=== PATIENT | male | born 1990 | race Caucasian/White ===

== ENCOUNTER 2019-04-28 19:39 | Emergency (ER) | payer MEDICAID ==
[~2019-04-28] VITALS: Ht 165.1 cm; Wt 84.1 kg
[2019-04-28 20:03] VITALS: Ht 165.1 cm; Wt 84.1 kg
[2019-04-28 21:30] LABS: BASOPHIL % 0.3 % (0-2); PLATELET COUNT 169 x10^3mcL (130-400); RED CELL DISTRIBUTION WIDTH 12.9 % (11.5-14.5)
[2019-04-28 21:51] LABS: CALCIUM 8.5 mg/dL (8.5-10.1); CARBON DIOXIDE 25.9 mmol/L (21-32); CHLORIDE SERUM 104 mmol/L (98-107); CREATININE SERUM 0.9 mg/dL (0.7-1.3); GFR1 > 60 mL/min; GLUCOSE SERUM 102 mg/dL (74-106); SODIUM SERUM 137 mmol/L (136-145)
[2019-04-28 21:57] LABS: ALBUMIN 4.2 g/dL (3.4-5.0); ALKALINE PHOSPHATASE 75 U/L (46-116); ALT/SGPT 36 U/L (16-63); AST/SGOT 17 U/L (15-37); BILIRUBIN TOTAL 0.6 mg/dL (0.20-1.00); TOTAL PROTEIN, SERUM 7.7 g/dL (6.4-8.2)
[2019-04-28 23:10] LABS: microscopic required? NO
[2019-04-28 23:18] LABS: urine erythrocyte NEGATIVE (NEGATIVE)
[2019-04-28 23:37] LABS: AMPHETAMINE QUAL UR NONE DETECTED (See below)
[2019-04-29 02:23] VITALS: BP 109/62
== END 2019-04-29 02:23 | disposition home or self-care (01) ==
LOC: ED 19:39
PROVIDERS: Emergency Medicine
DX: F41.9 Anxiety disorder, unspecified (principal); F41.0 Panic disorder [episodic paroxysmal anxiety]; B34.9 Viral infection, unspecified; F22 Delusional disorders
CPT/HCPCS: 36415; 87804